=== PATIENT | male | born 1945 | race Hispanic/Latino ===

== ENCOUNTER 2017-11-25 10:49 | Outpatient (CLI) | payer MEDICARE, BC ==
--- NOTE | 2017-11-25 13:04 | RAD ---
LEFT SHOULDER 3 VIEWS: Date: 11/25/17 HISTORY: Left shoulder pain. FINDINGS/IMPRESSION: There are degenerative changes in the acromioclavicular and glenohumeral joints. No fracture, disloca tion, or bony destruction is seen. 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 POS: [facility]
== END 2017-11-25 10:50 | disposition home or self-care (01) ==
LOC: RAD-FRANK 10:49
PROVIDERS: ATTEND Internal Medicine
DX: M25.512 Pain in left shoulder (principal)

== ENCOUNTER 2018-03-09 14:57 | Emergency (ER) | payer MEDICARE, BC ==
[2018-03-09] MEDS ORDERED: Famotidine 20 MG TAB ONE (15:36)
[2018-03-09] MEDS ORDERED: Dexamethasone 4 mg/ml Vial ONE (15:36)
[2018-03-09] MEDS ORDERED: diphenhydrAMINE 25 MG CAP ONE (15:42)
== END 2018-03-09 17:04 | disposition home or self-care (01) ==
LOC: ERS 14:57
DX: T63.461A Toxic effect of venom of wasps, accidental (unintentional), initial encounter (principal); E78.5 Hyperlipidemia, unspecified; I10 Essential (primary) hypertension; I25.10 Atherosclerotic heart disease of native coronary artery without angina pectoris; Z79.82 Long term (current) use of aspirin; Z79.899 Other long term (current) drug therapy
CPT/HCPCS: 99283; J1100

== ENCOUNTER 2020-03-01 13:02 | Emergency (ER) | payer MEDICARE, BC | END 2020-03-01 14:14 | disposition home or self-care (01) | LOC: ERS 13:02 | DX: L23.7 Allergic contact dermatitis due to plants, except food (principal); E78.5 Hyperlipidemia, unspecified; I10 Essential (primary) hypertension; Z87.891 Personal history of nicotine dependence; Z79.899 Other long term (current) drug therapy | CPT/HCPCS: 99282 ==

== ENCOUNTER 2021-07-20 08:54 | Emergency (ER) | payer MEDICARE ==
[2021-07-20] MEDS ORDERED: Acetaminophen 500 MG TAB ONE (09:24)
[2021-07-20 09:42] LABS: #Eosinphils 0.5 thou/uL (0.0-0.7); #Lymphocytes 1.6 thou/uL (1.20-3.40); #Monocytes 0.6 thou/uL (0.11-0.59); #Neutrophils 3.9 thou/uL (1.40-6.50); %Basophils 0.7 % (0.0-1.0); %Eosinophils 7.2 % (0.0-10.0); %Lymphocytes 24.5 % (21.0-51.0); %Monocytes 9.1 % (0.0-10.0); %Neutrophils 58.4 % (42.0-75.0); Mean Corpuscular HGB CONC 33.1 g/dL (32.0-36.0); Mean Corpuscular Hemoglobin 27.7 pg (27.0-31.0); Mean Corpuscular Volume 83.9 fL (78.0-98.0); Mean Platelet Volume 7.2 fL (7.4-10.4); Platelet Count 263 thou/uL (130-400); RBC Distribution Width 11.7 % (11.5-14.5); White Blood Cell (WBC) Count 6.7 thou/uL (4.8-10.8)
[2021-07-20 09:57] LABS: ALT (SGPT) 17 U/L (8-55); AST (SGOT) 20 U/L (5-34); Alkaline Phosphatase 62 U/L (40-110); Anion Gap 12 mmol/L (10-20); BUN (Urea Nitrogen) 15 mg/dL (8.4-25.7); Bilirubin, Total 0.7 mg/dL (0.2-1.2); Calc. Creatinine Clearance 0 mL/min (70-130); Carbon Dioxide 23 mmol/L (23-31); Chloride 100 mmol/L (98-107); Globulin 3.1 g/dL (2.4-3.5); Glucose 119 mg/dL (83-110); Potassium 4.4 mmol/L (3.5-5.1); Protein, Total 7.1 g/dL (5.8-8.1); Sodium 131 mmol/L (136-145)
== END 2021-07-20 10:29 | disposition home or self-care (01) ==
LOC: ERS 08:54
DX: G89.18 Other acute postprocedural pain (principal); M79.672 Pain in left foot; I25.10 Atherosclerotic heart disease of native coronary artery without angina pectoris; E78.5 Hyperlipidemia, unspecified; Z87.891 Personal history of nicotine dependence; Z79.02 Long term (current) use of antithrombotics/antiplatelets; Z79.82 Long term (current) use of aspirin; Z79.899 Other long term (current) drug therapy
CPT/HCPCS: 36415; 80053; 85025

== ENCOUNTER 2023-12-05 13:29 | Emergency (ER) | payer MEDICARE | END 2023-12-05 14:38 | disposition home or self-care (01) | LOC: ERS 13:29 | DX: M54.50 Low back pain, unspecified (principal); M89.29 Other disorders of bone development and growth, multiple sites; M62.838 Other muscle spasm; F17.290 Nicotine dependence, other tobacco product, uncomplicated; I10 Essential (primary) hypertension; E78.5 Hyperlipidemia, unspecified; I25.10 Atherosclerotic heart disease of native coronary artery without angina pectoris; Z79.899 Other long term (current) drug therapy; Z79.82 Long term (current) use of aspirin | CPT/HCPCS: 99283 ==

== ENCOUNTER 2024-03-19 16:57 | Inpatient (IN) | payer MEDICARE ==
[2024-03-19] MEDS ORDERED: Tranexamic Acid 1,000 MG/10 ML VIAL ONE ×2 (17:02→17:03)
[2024-03-19] MEDS ORDERED: Boostrix 0.5 ML (Tdap) VIAL (>/=7 yrs of age) ONE (17:05)
[2024-03-19] MEDS ORDERED: fentaNYL 50 mcg/mL 1 mL Vial ONE (17:06)
[2024-03-19] MEDS ORDERED: cefTRIAXone (ROCEPHIN) 1 GM VIAL ONE (17:06)
[2024-03-19] MEDS ORDERED: Sodium Chloride 0.9% 100 ML ONE (17:06)
[2024-03-19] MEDS ORDERED: SUCCINYLCHOLINE/SOD CL,ISO/PF 200 MG/10 ML SYRINGE FS ONE (17:18)
[2024-03-19] MEDS ORDERED: Ketamine In 0.9 % NaCl 50 MG/5 ML SYRINGE ONE (17:18)
[2024-03-19] MEDS ORDERED: Lidocaine 1% PF 5 ML VIAL ONE (17:18)
[2024-03-19] MEDS ORDERED: fentaNYL PF 100 MCG/2 ML SYRINGE ONE (17:18)
[2024-03-19] MEDS ORDERED: PROPOFOL 20 ML ONE (17:18)
[2024-03-19] MEDS ORDERED: Rocuronium Bromide 10 MG/ML (10ML VIAL) ONE (17:18)
[2024-03-19] MEDS ORDERED: PHENYLEPHRINE-NS 100 MCG/ML 10 ML SYRINGE ONE ×2 (17:19→17:52)
[2024-03-19] MEDS ORDERED: Heparin 10,000 UNITS/ 10 ML VIAL ONE ×2 (17:21→17:25)
[2024-03-19] MEDS ORDERED: traMADol HCl 50 MG TAB PO PRN ×2 (17:41→18:41)
[2024-03-19] MEDS ORDERED: Ondansetron PF 4 MG/2 ML Vial IVP PRN (17:41)
[2024-03-19] MEDS ORDERED: Morphine 4 MG/ML VIAL SLOW IVP PRN (17:44)
[2024-03-19] MEDS ORDERED: EPINEPHrine 1 MG/10 ML Abboject SYRINGE ONE (18:10)
[2024-03-19] MEDS ORDERED: ePHEDrine Sulfate 50 MG/10 ML VIAL ONE (18:10)
[2024-03-19] MEDS ORDERED: Ondansetron PF 4 MG/2 ML Vial ONE (18:14)
[2024-03-19] MEDS ORDERED: Dexamethasone 20 MG/5 ML VIAL ONE (18:14)
[2024-03-19] MEDS ORDERED: SUGAMMADEX SODIUM 200 MG/2 ML VIAL ONE (18:25)
[2024-03-19] MEDS ORDERED: fentaNYL 50 mcg/mL 1 mL Vial SLOW IVP PRN ×2 (18:41)
[2024-03-19] MEDS ORDERED: Labetalol HCl 100 MG/20 ML VIAL ONE (18:41)
[2024-03-19] MEDS ORDERED: hydrALAZINE 20 MG/ML VIAL ONE (19:01)
[2024-03-19 19:16] LABS: #Basophils Less than 0.03 10x3/uL (0.0-0.2); %Basophils 0.2 % (0.0-1.0); %Eosinophils 0.6 % (0.0-10.0); %Lymphocytes 7.4 % (21.0-51.0); %Monocytes 4.9 % (0.0-10.0); %Neutrophils 86.5 % (42.0-75.0); Hematocrit 39.2 % (42.0-52.0); Hemoglobin 12.9 g/dL (14.0-18.0); Mean Corpuscular HGB CONC 32.9 g/dL (32.0-36.0); Mean Corpuscular Hemoglobin 28.5 pg (27.0-31.0); Mean Corpuscular Volume 86.7 fL (78.0-98.0); Mean Platelet Volume 10.1 fL (7.4-10.4); Platelet Count 186 10x3/uL (130-400); RBC Distribution Width 13.4 % (11.5-14.5); Red Blood Cell (RBC) Count 4.52 mill/uL (4.70-6.10)
[2024-03-19 19:30] LABS: ALT (SGPT) 15 U/L (8-55); AST (SGOT) 27 U/L (5-34); Alkaline Phosphatase 54 U/L (40-110); Anion Gap 16 mmol/L (10-20); BUN (Urea Nitrogen) 17 mg/dL (8.4-25.7); Bilirubin, Total 0.6 mg/dL (0.2-1.2); Calc. Creatinine Clearance 0 mL/min (70-130); Calcium 9.6 mg/dL (7.8-10.44); Carbon Dioxide 22 mmol/L (23-31); Chloride 108 mmol/L (98-107); Estimated GFR 78; Glucose 135 mg/dL (83-110); Potassium 4.4 mmol/L (3.5-5.1); Sodium 142 mmol/L (136-145)
[2024-03-19 21:29] VITALS: BMI 29.6
[2024-03-20] MEDS ORDERED: Acetaminophen 325 MG TAB PO PRN (06:02)
[2024-03-20] MEDS ORDERED: Polyethylene Glycol 3350 17 GM Packet PO PRN ×2 (06:02→09:22)
[2024-03-20 06:03] LABS: #Basophils Less than 0.03 10x3/uL (0.0-0.2); #Eosinphils Less than 0.03 10x3/uL (0.0-0.7); %Lymphocytes 7.8 % (21.0-51.0); %Monocytes 2.7 % (0.0-10.0); %Neutrophils 89.2 % (42.0-75.0); Hemoglobin 12.4 g/dL (14.0-18.0); Mean Corpuscular HGB CONC 33.5 g/dL (32.0-36.0); Mean Corpuscular Hemoglobin 28.9 pg (27.0-31.0); Mean Corpuscular Volume 86.2 fL (78.0-98.0); Mean Platelet Volume 9.7 fL (7.4-10.4); Platelet Count 179 10x3/uL (130-400); RBC Distribution Width 13.7 % (11.5-14.5); Red Blood Cell (RBC) Count 4.29 mill/uL (4.70-6.10)
[2024-03-20 06:31] LABS: Anion Gap 15 mmol/L (10-20); BUN (Urea Nitrogen) 17 mg/dL (8.4-25.7); Calc. Creatinine Clearance 92 mL/min (70-130); Calcium 9.1 mg/dL (7.8-10.44); Carbon Dioxide 22 mmol/L (23-31); Chloride 103 mmol/L (98-107); Estimated GFR 90; Glucose 178 mg/dL (83-110); Sodium 136 mmol/L (136-145)
[2024-03-20] MEDS: Senokot S 8.6-50 MG TAB PO SCH (08:18)
[2024-03-20 09:41] LABS: Magnesium 1.9 mg/dL (1.6-2.6)
[2024-03-20] MEDS ORDERED: Dextrose 50% Abboject 50 ML SYRINGE SLOW IVP PRN (09:58)
[2024-03-20] MEDS ORDERED: Dextrose 5% in Water 1,000 ML IV PRN (09:58)
[2024-03-20] MEDS ORDERED: HumaLOG 300 UNITS/3 ML VIAL SC PRN (09:58)
[2024-03-20] MEDS ORDERED: Glucagon 1 MG/ML KIT IM PRN (09:58)
[2024-03-20] MEDS: Magnesium 2 GM/50 ML(in water) 2 GM in Premix 1 BAG IVPB SCH (10:18)
[2024-03-20] MEDS: Lisinopril 5 MG TAB PO SCH ×2 (10:19)
[2024-03-20] MEDS: HumaLOG 300 UNITS/3 ML VIAL SC PRN (12:23)
[2024-03-20] MEDS: Multivit, Therapeutic 1 TAB PO SCH (20:18)
[2024-03-20] MEDS ORDERED: Senokot S 8.6-50 MG TAB PO SCH (21:00)
[2024-03-20] MEDS: traMADol HCl 50 MG TAB PO PRN (23:02)
[2024-03-21] MEDS: Polyethylene Glycol 3350 17 GM Packet PO SCH (08:37)
[2024-03-21 11:31] VITALS: BP 128/74; TEMP 97.5
== END 2024-03-21 15:20 | disposition home or self-care (01) | DRG 605 ==
LOC: ERS 16:57 → SURG A 17:40 → SDC/OP 18:30 → SURG A 20:00
PROVIDERS: ADMIT Student in an Organized Health Care Education/Training Program; ATTEND Student in an Organized Health Care Education/Training Program
PROC: 0HDBXZZ Extraction of Right Upper Arm Skin, External Approach (ICD-10-PCS; principal; 2024-03-19)
DX: S41.131A Puncture wound without foreign body of right upper arm, initial encounter (principal); W34.00XA Accidental discharge from unspecified firearms or gun, initial encounter; E78.5 Hyperlipidemia, unspecified; I25.10 Atherosclerotic heart disease of native coronary artery without angina pectoris; Z95.1 Presence of aortocoronary bypass graft; Z98.890 Other specified postprocedural states; E11.22 Type 2 diabetes mellitus with diabetic chronic kidney disease; N18.2 Chronic kidney disease, stage 2 (mild); I12.9 Hypertensive chronic kidney disease with stage 1 through stage 4 chronic kidney disease, or unspecified chronic kidney disease; Z79.01 Long term (current) use of anticoagulants; Z79.82 Long term (current) use of aspirin; Z79.899 Other long term (current) drug therapy; E83.42 Hypomagnesemia
CPT/HCPCS: 36416; 80048; 80053; 83735; 85025; 86850; 86900; 86901; 90471; 90715; 96374; 96375; G0390; J0171; J0360; J0696; J1100; J1644; J1815; J2405; J2704; J3010; J3475; J3490